=== PATIENT | female | born 1955 | race Caucasian/White ===

== ENCOUNTER → 2024-04-25 08:05 | Outpatient (CLI) | payer OTHER, MEDICARE, SELFPAY ==
--- NOTE | 2024-04-25 08:17 | DI.MRI.S_ITS ---
PROCEDURE: MR HIP RT WO CON INDICATIONS: AVN TECHNIQUE: Noncontrast coronal T1 spin echo and STIR through the bony pelvis. Coronal and axial T2 fast spin echo with fat saturation, sagittal T1 spin echo, and oblique axial T2 fast spin echo with fat saturation through the hip. COMPARISON: [facility], CR, XR PELVIS WITH LATERAL HIP RIGHT, 03/22/2024, 9:38. [facility], CT, CT ABDOMEN PELVIS WITH CONTRAST, 05/15/2022, 13:05. FINDINGS: Image quality: Motion degraded Bones: Pelvic ring: No acute pelvic ring disruption Femoral head and neck: No acute fracture Ligamentum teres: Intact. Lumbar spine and sacrum: Partially seen degenerative changes Tendons: Abductors: [id number] tendinopathy and partial tears, likely also present on the contralateral side Adductors and rectus abdominis: Intact. No pubic symphyseal edema. IT band: Intact. Iliopsoas: Mild insertional tendinopathy Hamstrings: Mild proximal edema at the origin Rectus femoris: Intact. Joint: Joint space: Moderate to severe right arthrosis and mild effusion. Subchondral edema is seen at the weight-bearing portion of the femoral head and acetabulum. Labrum: Not well assessed on this study, circumferential degeneration is likely present Cartilage: Not well assessed on this study. There is diffuse thinning Soft tissues: Quadratus femoris: No edema or atrophy. Piriformis: Symmetric. Intrapelvic structures: Not well assessed on this study. Possible uterine fibroid. IMPRESSION: Moderate to severe right hip arthrosis and mild joint effusion. Subchondral edema is likely related to osteoarthritic changes, with some subchondral geode formation, particularly at the acetabulum. Mild signal abnormality is also seen at the femoral head weight-bearing surface. This is favored to represent degenerative edema, though differential includes early AVN. No femoral head collapse. Gluteus medius/minimus tendinopathy and partial tears. Iliopsoas and hamstring tendinopathy also seen. Dictated by: Teja Marshall M.D. on 04/25/2024 at 15:17 Approved by: Teja Marshall M.D. on 04/25/2024 at 15:26
== END ==
PROVIDERS: PCP Internal Medicine; Referring Provider Orthopaedic Surgery; Visit Provider Orthopaedic Surgery
DX: M16.11 Unilateral primary osteoarthritis, right hip (principal); M87.00 Idiopathic aseptic necrosis of unspecified bone; M25.451 Effusion, right hip; S76.011A Strain of muscle, fascia and tendon of right hip, initial encounter
CPT/HCPCS: 73721